=== PATIENT | female | born 1995 | race Caucasian/White ===

== ENCOUNTER 2018-02-18 20:18 | Emergency (ER) | payer OTHER ==
--- NOTE | 2018-02-18 20:51 | ED ---
GI/ HPI - HPI Summary HPI Summary: 22 year old female presents with pelvic pain today. She states it is a cramping like pain. She is concerned that her IUD is displaced. States she has a history of chlamydia and PID. She denies any abnormal vaginal discharge. She admits to spotting. States that she thought initially that she was having her period although it is early. She denies any nausea vomiting. No previous belly surgeries. No urinary symptoms. No diarrhea constipation. Has no medical conditions. - History of Current Complaint Chief Complaint: EDGeneral Time Seen by Provider: 02/18/18 20:36 Stated Complaint: PELVIC PAIN Pain Intensity: 8 - Allergy/Home Medications Allergies/Adverse Reactions: Allergies Allergy/AdvReac Type Severity Reaction Status Date / Time amoxicillin Allergy Rash Verified 02/18/18 20:23 Penicillins Allergy Rash Verified 02/18/18 20:23 Sulfa (Sulfonamide Allergy Rash Verified 02/18/18 20:23 Antibiotics) Home Medications: Home Medications Dextroamphetamine/Amphetamine [Adderall 30 mg Tablet] 30 mg PO DAILY 02/18/18 [ History Confirmed 02/18/18] FLUoxetine CAP* [PROzac CAP*] 20 mg PO DAILY 02/18/18 [History Confirmed ] PMH/Surg Hx/FS Hx/Imm Hx Endocrine/Hematology History: Denies: Hx Anticoagulant Therapy Respiratory History: Denies: Hx Asthma Infectious Disease History: No Infectious Disease History: Denies: Traveled Outside the [place] in Last 30 Days - Family History Known Family History: Positive: Non-Contributory - Social History Substance Use Type: Reports: None Smoking Status (MU): Never Smoked Tobacco Review of Systems Negative: Fever Negative: Chest Pain Negative: Shortness Of Breath Positive: Abdominal Pain. Negative: Vomiting, Diarrhea, Nausea Negative: dysuria All Other Systems Reviewed And Are Negative: Yes Physical Exam Triage Information Reviewed: Yes Vital Signs On Initial Exam: Initial Vitals Temp Pulse Resp BP Pulse Ox 98.5 F 111 16 143/97 100 02/18/18 20:20 02/18/18 20:20 02/18/18 20:20 02/18/18 20:20 02/18/18 20:20 Vital Signs Reviewed: Yes Appearance: Positive: Well-Appearing Skin: Positive: Warm, Dry Head/Face: Positive: Normal Head/Face Inspection Eyes: Positive: Normal, Conjunctiva Clear ENT: Positive: Pharynx normal Respiratory/Lung Sounds: Positive: Clear to Auscultation, Breath Sounds Present Cardiovascular: Positive: Normal, RRR Abdomen Description: Positive: Soft, Other: - tenderness suprapubic Bowel Sounds: Positive: Present Pelvic Exam: Positive: External Exam Normal, Blood, Tender w/ Cervical Motion, Tender Adnexa Musculoskeletal: Positive: Normal Neurological: Positive: Normal Psychiatric: Positive: Normal Diagnostics - Vital Signs Vital Signs Temp Pulse Resp BP Pulse Ox 02/18/18 20:20 98.5 F 111 16 143/97 100 - Laboratory Result Diagrams: 02/18/18 20:53 02/18/18 20:53 Lab Statement: Any lab studies that have been ordered have been reviewed, and results considered in the medical decision making process. - Ultrasound No standard instances Ultrasound Interpretation Completed By: Radiologist Summary of Ultrasound Findings: 1. Normal uterus with IUD in place and normal right ovary. 2. There is a 5 x 4 cm complex cyst in the left ovary, probably a hemorrhagic. follicular cyst. Consider followup after 2-3 cycles. GIGU Course/Dx - Course Course Of Treatment: 22 year old female presents with pelvic pain today. She states it is a cramping like pain. She is concerned that her IUD is displaced. States she has a history of chlamydia and PID. She denies any abnormal vaginal discharge. She admits to spotting. States that she thought initially that she was having her period although it is early. She denies any nausea vomiting. No previous belly surgeries. No urinary symptoms. No diarrhea constipation. Has no medical conditions. On exam has tenderness suprapubic. On pelvic no abnormal discharge noted. Has cervical motion tenderness. white blood cell count normal. cpr normal. electrolytes normal. transvaginal u/s shows left ovary cyst. will have follow up with ob. no signs of PID with discharge on exam although is tend. lab work does not support PID either so will wait for cultures if need to treat. patient understand and agrees with plan. - Diagnoses Differential Diagnoses - Female: Ovarian Cyst, Ovarian Torsion, Pelvic Inflammatory Disease Provider Diagnoses: Left ovarian cyst Discharge - Sign-Out/Discharge Documenting (check all that apply): Patient Departure - Discharge Plan Condition: Good Disposition: HOME Patient Education Materials: Ruptured Ovarian Cyst (ED) Referrals: [facility] [place] [facility]ICIAN REFERRAL [Outside] Additional Instructions: apply heat to area Take ibuprofen or tyenlol every 6 hours Follow up with heel stainer Establish care with primary Return to ED if develop any new or worsening symptoms - Billing Disposition and Condition Condition: GOOD Disposition: Home
[2018-02-18 21:01] LABS: ABS Basophils 0 10^3/ul (0-0.2); ABS Eosinophils 0.1 10^3/ul (0-0.6); ABS Lymphocytes 2.6 10^3/ul (1.0-4.8); ABS Monocytes 0.4 10^3/ul (0-0.8); ABS Neutrophils 3.6 10^3/ul (1.5-7.7); ABS Nucleated RBC 0 10^3/ul; Eosinophil % 1.6 %; Hematocrit 36 % (35-47); Hemoglobin 12.2 g/dl (12.0-16.0); Lymphocyte % 38.6 %; Mean Corpuscular HGB Conc 34 g/dl (31-36); Mean Corpuscular Hemoglobin 28 pg (27-31); Mean Corpuscular Volume 84 fL (80-97); Mean Platelet Volume 8.9 fL (7.4-10.4); Nucleated Red Blood Cells % 0.1; Platelet Count 204 10^3/ul (150-450); Red Blood Count 4.32 10^6/ul (4.00-5.40); Red Cell Distribution Width 14 % (10.5-15); White Blood Count 6.7 10^3/ul (3.5-10.8)
[2018-02-18] MEDS ORDERED: Ketorolac INJ* 30 MG/ML 1 ML VIAL IM ONE (21:09)
[2018-02-18 21:14] LABS: Urine Appearance Cloudy; Urine Bacteria Absent (Absent); Urine Bilirubin Negative (Negative); Urine Blood 3+ (Negative); Urine Color Yellow; Urine Glucose Negative (Negative); Urine Ketones Negative (Negative); Urine Nitrite Negative (Negative); Urine Protein Negative (Negative); Urine Red Blood Cell Trace(0-2/hpf) (Absent); Urine Specific Gravity 1.016 (1.010-1.030); Urine Squamous Epithelial Cell Present (Absent); Urine Urobilinogen Negative (Negative); Urine White Blood Cell Trace(0-5/hpf) (Absent)
[2018-02-18] MEDS ORDERED: Morphine 10 MG/ML VIAL (1 ml) IM ONE (21:17)
[2018-02-18 21:20] LABS: ALT 18 U/L (7-52); AST 20 U/L (13-39); Albumin 4.6 g/dL (3.2-5.2); Albumin/Globulin Ratio 1.8 (1-3); Alkaline Phosphatase 57 U/L (34-104); Anion Gap 6 mmol/L (2-11); BUN/Creatinine Ratio 18.4 (8-20); Blood Urea Nitrogen 14 mg/dL (6-24); C Reactive Protein < 1.00 mg/L (<8.01); CO2 Carbon Dioxide 28 mmol/L (22-32); Calcium 9.3 mg/dL (8.6-10.3); Chloride 103 mmol/L (101-111); EGFR African American 117.4 (>60); Globulin 2.5 g/dL (2-4); Glucose 102 mg/dL (70-100); Potassium 3.7 mmol/L (3.5-5.0); Sodium 137 mmol/L (135-145); Total Protein 7.1 g/dL (6.4-8.9)
[2018-02-18 21:26] LABS: HCG Pregnancy < 0.60 mIU/mL
[2018-02-18 23:24] VITALS: BP 108/62
[2018-02-19 12:52] LABS: Neisseria gonorrhoeae (GC) RNA Negative (Negative)
[2018-02-19 12:57] LABS: Trichomonas vaginalis Result Negative (Negative)
== END 2018-02-18 23:24 | disposition home or self-care (01) ==
LOC: ED 20:18
DX: N83.292 Other ovarian cyst, left side (principal); Z97.5 Presence of (intrauterine) contraceptive device; Z88.0 Allergy status to penicillin; Z88.2 Allergy status to sulfonamides
CPT/HCPCS: 36415; 76830; 80053; 81003; 81015; 84702; 85025; 86140; 87077; 87086; 87480; 87491; 87510; 87591; 87661; 96372; 99213; 99283; G0463; J1885; J2270